=== PATIENT | female | born 1960 ===

== ENCOUNTER 2023-05-28 04:46 | Day surgery (SDC) | payer OTHER ==
[2023-05-24 10:44] VITALS: BMI 36.1
[2023-05-28] MEDS ORDERED: LIDOCAINE HCL 1%, 10 MG/ML (20ML VIAL) ONE ×2 (13:19→13:35)
[2023-05-28] MEDS ORDERED: PROPOFOL 20 ML ONE (13:30)
[2023-05-28] MEDS ORDERED: FENTANYL CITRATE/PF 50 MCG/ML VIAL ONE ×3 (13:31→15:23)
[2023-05-28] MEDS ORDERED: MIDAZOLAM HCL 2 MG/2 ML SINGLE DOSE VIAL ONE (13:31)
[2023-05-28] MEDS ORDERED: ceFAZolin SODIUM 1 GM VIAL IVPB ONE (13:52)
[2023-05-28] MEDS ORDERED: ceFAZolin SODIUM 1 GM VIAL ONE (13:53)
[2023-05-28] MEDS ORDERED: ONDANSETRON 4 MG/2 ML VIAL ONE (13:57)
[2023-05-28] MEDS ORDERED: DEXAMETHASONE SOD PHOSPHATE 4 MG/1 ML VIAL ONE (13:57)
[2023-05-28] MEDS ORDERED: LIDOCAINE HCL 1%, 10 MG/ML (20ML VIAL) NR ONE ×2 (14:01)
[2023-05-28] MEDS ORDERED: oxyCODONE HCL 5 MG TABLET PO PRN (14:38)
[2023-05-28] MEDS ORDERED: ONDANSETRON 4 MG/2 ML VIAL IVPUSH PRN (14:38)
[2023-05-28] MEDS ORDERED: LACTATED RINGERS SOLUTION 1,000 ML IV SCH (14:45)
[2023-05-28] MEDS ORDERED: ACETAMINOPHEN 1000 MG/100 ML BAG IVPB ONE ×2 (15:45→17:11)
[2023-05-28] MEDS ORDERED: ACETAMINOPHEN INJECTION 100 ML IVPB ONE (15:51)
[2023-05-28 16:23] VITALS: RESP 16
[2023-05-28 16:34] VITALS: TEMP 97.4
[2023-05-28 17:10] VITALS: BP 133/80; PULSE 68
== END 2023-05-28 17:12 | disposition home or self-care (01) ==
LOC: JASU-SURG 04:46
PROVIDERS: ATTEND Surgery
PROC: 0HBT0ZZ Excision of Right Breast, Open Approach (ICD-10-PCS; principal; 2023-05-28 13:30)
DX: N60.91 Unspecified benign mammary dysplasia of right breast (principal); N60.11 Diffuse cystic mastopathy of right breast
CPT/HCPCS: 19281; 76098-TC-FY; 88307-TC; 94760